=== PATIENT | female | born 1955 | race Caucasian/White ===

== ENCOUNTER 2020-02-24 14:01 | Emergency (ER) | payer OTHER ==
[~2020-02-24] VITALS: Ht 170.2 cm; Wt 60.8 kg
--- NOTE | 2020-02-24 14:12 | NUR ---
CAME IN FOR LEFT SHOULDER PAIN AND DEFORMITY S/P TRIP AND FALL, TO ER BED 10, HOOKED TO [employer], BP CUFF AND POX. CHANGED TO HOSP GOWN, WARM BLANKET PROVIDED, PATIENT AAO x 4, DR PRO AT BEDSIDE
[2020-02-24] MEDS ORDERED: oxyCODONE IR immediate release 5 MG PO STA (14:53)
[2020-02-24] MEDS ORDERED: ACETAMINOPHEN 325 MG TABLET PO ONE (15:00)
[2020-02-24] MEDS ORDERED: ACETAMINOPHEN 325 MG TABLET ONE (15:19)
--- NOTE | 2020-02-24 15:25 | NUR ---
NO AVAILABLE OXYCODONE 5MG IR PER PHARMACY, MADE AWARE. RECEIVED VERBAL ORDER OF NORCO 5-325MG PO. CARRIED OUT
[2020-02-24] MEDS ORDERED: HYDROCODONE/APAP 5/325MG TABLET ONE (15:27)
[2020-02-24] MEDS ORDERED: HYDROCODONE/APAP 5/325MG TABLET PO ONE (15:30)
--- NOTE | 2020-02-24 15:37 | NUR ---
JARRET ALLEN AT BEDSIDE FOR APPLICATION OF POST LONG ARM W SUGAR TONG AND SHOULDER IMMOBILIZER
--- NOTE | 2020-02-24 16:04 | NUR ---
Patient discharged to home in stable condition. Written and verbal after care instructions given. Patient verbalizes understanding of instruction. Instructed not to drive
[2020-02-24 16:05] VITALS: BP 129/74
== END 2020-02-24 16:07 | disposition home or self-care (01) ==
LOC: ER 14:12
DX: S42.292A Other displaced fracture of upper end of left humerus, initial encounter for closed fracture (principal); W01.0XXA Fall on same level from slipping, tripping and stumbling without subsequent striking against object, initial encounter; Y93.89 Activity, other specified; Y92.89 Other specified places as the place of occurrence of the external cause; Y99.8 Other external cause status
CPT/HCPCS: 73020

== ENCOUNTER 2023-05-11 21:52 | Emergency (ER) | payer MEDICARE, BC ==
[~2023-05-11] VITALS: Ht 170.2 cm; Wt 72.6 kg
[2023-05-11 22:19] VITALS: TEMP 98.1
[2023-05-11 23:11] LABS: BASOPHILS # (AUTO) 0.1 K/uL (0.0-0.2); BASOPHILS % (AUTO) 0.8 % (0.0-2.0); EOSINOPHILS # (AUTO) 0.2 K/uL (0.0-0.7); EOSINOPHILS % (AUTO) 2.6 % (0.0-6.0); HEMATOCRIT 36 % (33-45); LYMPHOCYTES # (AUTO) 2.5 K/uL (0.8-4.8); LYMPHOCYTES % (AUTO) 31.8 % (20.0-44.0); MEAN CORPUSCULAR HEMOGLOBIN 30 PG (26.0-33.0); MEAN CORPUSCULAR HGB CONC 34 g/dl (31.0-36.0); MEAN CORPUSCULAR VOLUME 88 fL (82-100); MONOCYTES # (AUTO) 0.7 K/uL (0.1-1.30); MONOCYTES % (AUTO) 9.5 % (2.0-12.0); NEUTROPHILS # (AUTO) 4.3 K/uL (1.8-8.9); NEUTROPHILS % (AUTO) 55.3 % (43.0-81.0); PLATELET COUNT (AUTO) 286 K/uL (150-450); RED BLOOD CELL COUNT(AUTO) 4.05 MIL/uL (4.0-5.2); WHITE BLOOD COUNT (AUTO) 7.7 K/uL (4.3-11.0)
[2023-05-11 23:24] LABS: INR 0.97 (0.91-1.10); PARTIAL THROMBOPLASTIN TIME 25.7 SEC (24.3-34.3); PROTHROMBIN TIME 10.3 SECS (9.2-11.1)
[2023-05-11 23:32] LABS: CALCIUM, SERUM 9.1 mg/dL (8.5-10.1); CARBON DIOXIDE 29 mmol/L (21-32); CHLORIDE 105 mmol/L (98-107); CREATININE 0.6 mg/dL (0.6-1.3); GLUCOSE 94 mg/dL (74-106); POTASSIUM 3.7 mmol/L (3.5-5.1); SODIUM SERUM 141 mmol/L (136-145); UREA NITROGEN, BLOOD 13 mg/dL (7-18)
[2023-05-11 23:38] LABS: ALANINE AMINOTRANSFERASE 37 U/L (12-78); ALBUMIN 3.2 g/dL (3.4-5.0); ALKALINE PHOSPHATASE 116 U/L (46-116); ASPARTATE AMINOTRANSFERASE 27 U/L (15-37); BILIRUBIN,DIRECT 0.1 mg/dL (0.0-0.2); BILIRUBIN,TOTAL 0.3 mg/dL (0.2-1.0); TOTAL PROTEIN, SERUM 6.8 g/dL (6.4-8.2)
[2023-05-12 02:03] VITALS: BP 135/88; O2SAT 99
== END 2023-05-12 02:04 | disposition home or self-care (01) ==
LOC: ER 22:10
DX: F41.9 Anxiety disorder, unspecified (principal)
CPT/HCPCS: 36415; 71045-TC; 80048-TC; 80076-TC; 84484-TC; 85025-TC; 85730-TC